=== PATIENT | female | born 1930 | race Caucasian/White ===

== ENCOUNTER 2020-08-15 15:02 | Emergency (ER) | payer MEDICARE, BC ==
[2020-08-15] MEDS ORDERED: Cephalexin 500 MG Cap PO ONE (15:03)
[2020-08-15] MEDS ORDERED: Morphine 2 MG/ML SYRINGE IVPUSH ONE (15:03)
[2020-08-15] MEDS ORDERED: Ondansetron 4 MG/2 ML SDV IVPUSH PRN (15:03)
[2020-08-15] MEDS ORDERED: Sodium Chloride 0.9% 10 ML Syringe IV PRN (15:07)
--- NOTE | 2020-08-15 15:12 | EDM.PDOC ---
ED HPI GENERAL MEDICAL PROBLEM - General Chief Complaint: Abdominal Pain Stated Complaint: ABD Pain Time Seen by Provider: 08/15/20 15:02 Source of Information: Reports: Patient History Limitations: Reports: No Limitations - History of Present Illness INITIAL COMMENTS - FREE TEXT/NARRATIVE: This patient is an 89 year old female that presents to the ER. Patient reports that she started yesterday evening with abdominal pain. She reports her abdominal pain hurts in the lower abd. She reports that last night she had about 4 episodes of diarrhea with minimal bright red stool. She reports vomiting, chest pain, shortness of breath, dizziness, urinary changes. Onset Date: 08/14/20 Duration: Hour(s): (24) Location: Reports: Abdomen Quality: Reports: Ache Severity: Moderate Improves with: Reports: None Worsens with: Reports: None Associated Symptoms: Reports: No Other Symptoms. Denies: Confusion, Chest Pain, Cough, cough w sputum, Diaphoresis, Fever/Chills, Headaches, Loss of Appetite, Malaise, Nausea/Vomiting, Rash, Seizure, Shortness of Breath, Syncope, Weakness lower abd Pain Score (Numeric/FACES): 8 - Related Data Allergies Allergy/AdvReac Type Severity Reaction Status Date / Time Sulfa (Sulfonamide Allergy Hives Verified 08/15/20 15:16 Antibiotics) Home Meds: Home Meds Acetaminophen [Tylenol Extra Strength] 500 mg PO DAILY PRN 10/10/16 [History] Docusate Sodium [Colace] 100 mg PO DAILY 10/10/16 [History] Furosemide 40 mg PO DAILY 10/10/16 [History] Gabapentin [Neurontin] 300 mg PO BEDTIME 10/10/16 [History] Ibuprofen [Advil] 100 mg PO DAILY PRN 10/10/16 [History] Propranolol [Inderal LA] 60 mg PO BID 10/10/16 [History] aMILoride/Hydrochlorothiazide [Amiloride-HCTZ 5-50 MG] 1 tab PO DAILY 10/10/16 [History] Calcium Carbonate/Vitamin D3 [Caltrate 600 Plus D3 Tablet] 1 tab PO DAILY 06/19/20 [History] Hydrocodone/Acetaminophen [Hydrocodone-Acetamin 5-325 mg] 2 tab PO DAILY 06/19/20 [History] Multivitamin 1 tab PO DAILY 06/19/20 [History] Potassium Chloride 20 meq PO BID 06/19/20 [History] cephALEXin [Cephalexin] 500 mg PO BID #10 capsule 08/15/20 [Rx] ED ROS GENERAL - Review of Systems Review Of Systems: See Below Constitutional: Reports: No Symptoms HEENT: Reports: No Symptoms Respiratory: Reports: No Symptoms Cardiovascular: Reports: No Symptoms Endocrine: Reports: No Symptoms GI/Abdominal: Reports: Abdominal Pain, Bloody Stool, Diarrhea. Denies: Black Stool : Reports: No Symptoms Musculoskeletal: Reports: No Symptoms Skin: Reports: No Symptoms Neurological: Reports: No Symptoms Psychiatric: Reports: No Symptoms Hematologic/Lymphatic: Reports: No Symptoms Immunologic: Reports: No Symptoms ED EXAM, GI/ABD - Physical Exam Exam: See Below Exam Limited By: No Limitations General Appearance: Alert, WD/WN, No Apparent Distress Ears: Normal External Exam, Normal Canal, Hearing Grossly Normal, Normal TMs Nose: Normal Inspection, Normal Mucosa, No Blood Throat/Mouth: Normal Inspection, Normal Lips, Normal Teeth, Normal Gums, Normal Oropharynx, Normal Voice, No Airway Compromise Head: Atraumatic, Normocephalic Neck: Normal Inspection, Supple, Non-Tender, Full Range of Motion Respiratory/Chest: No Respiratory Distress, Lungs Clear, Normal Breath Sounds, No Accessory Muscle Use Cardiovascular: Normal Peripheral Pulses, Regular Rate, Rhythm, No Edema, No Gallop, No JVD, No Murmur, No Rub GI/Abdominal Exam: Normal Bowel Sounds, Soft, No Organomegaly, No Distention, No Abnormal Bruit, No Mass, Pelvis Stable, Tender (mildly diffuse). No: Guarding, Rigid, Rebound Back Exam: Normal Inspection, Full Range of Motion. No: CVA Tenderness (L), CVA Tenderness (R) Extremities: Normal Inspection, Normal Range of Motion, Non-Tender, No Pedal Edema, Normal Capillary Refill Neurological: Alert, Oriented, Normal Cognition, Normal Gait, No Motor/Sensory Deficits Psychiatric: Normal Affect, Normal Mood Skin Exam: Warm, Dry, Intact, Normal Color, No Rash Lymphatic: No Adenopathy Course - Vital Signs Last Recorded V/S: Last Vital Signs Temp 98.1 F 08/15/20 15:04 Pulse 81 08/15/20 15:04 Resp 18 08/15/20 15:04 BP 151/81 H 08/15/20 15:04 Pulse Ox 95 08/15/20 15:04 - Orders/Labs/Meds Orders: Active Orders 24 hr Category Date Time Status Abdomen Pelvis w Cont [CT] Stat Exams 08/15/20 15:18 Taken CULTURE URINE [RM] Routine Lab 08/15/20 15:13 Received Ondansetron [Zofran] Med 08/15/20 15:03 Active 4 mg IVPUSH Q6H PRN Sodium Chloride 0.9% [Saline Flush] Med 08/15/20 15:07 Active 10 ml IV ASDIRECTED PRN cephALEXin [Take Home: Cephalexin 500 MG, 4 Cap Pack] Med 08/15/20 16:40 Once 1 packet PO ONETIME ONE Medication Orders Ondansetron HCl (Zofran) 4 mg IVPUSH Q6H PRN PRN Reason: Nausea Last Admin: 08/15/20 15:19 Dose: 4 mg Documented by: MACKRIC Sodium Chloride (Saline Flush) 10 ml IV ASDIRECTED PRN PRN Reason: Keep Vein Open Labs: Laboratory Tests 08/15/20 08/15/20 08/15/20 Range/Units 15:13 15:13 15:13 WBC 10.9 H (5.0-10.0) 10^3/uL RBC 4.40 (4.00-5.50) 10^6/uL Hgb 15.5 (12.0-16.0) g/dL Hct 44.2 (37.0-47.0) % MCV 100.5 H (82.0-94.0) fL MCH 35.2 H (27.0-32.0) pg MCHC 35.1 (33.0-38.0) g/dL RDW Coeff of Randal 13.2 (11.0-15.0) % Plt Count 206 (150-400) 10^3/uL Neut % (Auto) 69.8 (35-85) % Lymph % (Auto) 15.9 (10-55) % [place] % (Auto) 12.1 (0-16) % Eos % (Auto) 1.6 (0-5) % Baso % (Auto) 0.6 (0-3) % Neut # (Auto) 7.59 H (1.80-7.00) 10^3/uL Lymph # (Auto) 1.73 (1.00-4.80) 10^3/uL [place] # (Auto) 1.31 H (0.00-0.80) 10^3/uL Eos # (Auto) 0.17 (0.00-0.45) 10^3/uL Baso # (Auto) 0.06 10^3/uL Sodium 143 (136-145) mEq/L Potassium 3.4 L (3.5-5.0) mEq/L Chloride 104 (98-106) mEq/L Carbon Dioxide 32 (21-32) mmol/L BUN 20 H (7-18) mg/dL Creatinine 1.1 H (0.6-1.0) mg/dL Est Cr Clr Drug Dosing 24.90 mL/min Estimated GFR (MDRD) 47 L (>=60) mL/min Glucose 136 H (75-99) mg/dL Calcium 9.4 (8.4-10.1) mg/dL Total Bilirubin 1.1 H (0.0-1.0) mg/dL AST 30 (15-37) U/L ALT 31 (12-78) U/L Alkaline Phosphatase 78 (46-116) U/L Total Protein 7.4 (6.4-8.2) g/dL Albumin 3.2 L (3.4-5.0) g/dL Amylase 48 (25-115) U/L Lipase 148 (73-393) U/L Urine Color Yellow (YELLOW) Urine Appearance Clear (CLEAR) Urine pH 7.0 (4.5-8.0) Ur Specific [place] 1.020 (1.003-1.020) Urine Protein Trace H (NEGATIVE) mg/dL Urine Glucose (UA) Negative (NEGATIVE) mg/dL Urine Ketones Negative (NEGATIVE) mg/dL Urine Occult Blood Negative (NEGATIVE) Urine Nitrite Positive H (NEGATIVE) Urine Bilirubin Negative (NEGATIVE) Urine Urobilinogen 0.2 (0.2-1.0) EU/dL Ur Leukocyte Esterase Small H (NEGATIVE) Urine RBC 5-10 H (0-5) /HPF Urine WBC 50-75 H (0-5) /HPF Urine Bacteria Moderate H (NOT SEEN) /HPF Urinalysis Comment Meds: Medications Generic Name Dose Route Start Last Admin Trade Name Freq PRN Reason Stop Dose Admin Ondansetron HCl 4 mg 08/15/20 15:03 08/15/20 15:19 Zofran IVPUSH 4 mg Q6H PRN Administration Nausea Sodium Chloride 10 ml 08/15/20 15:07 Saline Flush IV ASDIRECTED PRN Keep Vein Open Discontinued Medications Generic Name Dose Route Start Last Admin Trade Name Papa PRN Reason Stop Dose Admin Ceftriaxone Sodium 1 gm 08/15/20 15:44 08/15/20 16:20 Rocephin IVPUSH 08/15/20 15:45 1 gm ONETIME ONE Administration Sodium Chloride 500 mls @ 500 mls/hr 08/15/20 15:15 08/15/20 16:20 Normal Saline IV 08/15/20 16:14 500 mls/hr ONETIME ONE Administration Iopamidol 100 ml 08/15/20 15:44 08/15/20 16:02 [id number] (76%) IVPUSH 08/15/20 15:45 100 ml ONETIME ONE Administration Morphine Sulfate 2 mg 08/15/20 15:03 08/15/20 15:18 Morphine IVPUSH 08/15/20 15:04 2 mg ONETIME ONE Administration - Radiology Interpretation Free Text/Narrative:: Abd/Pelvis with contrast: descending and transverse colon colitis. Ischemic pattern but not ischemic, it is colitis and she has no plaques at all. Gallstone s. CT Results Date: 08/15/20 CT Results Time: 16:21 - Re-Assessments/Exams Free Text/Narrative Re-Assessment/Exam: 08/15/20 16:33 This patient has a UTI, have given IV Rocephin. After discussing with the radiologist and patient symptoms, she has colitis. Not suspected ischemic bowel at this time. Pain is also not severe. Patient reports pain decreased after medication. Discussed with the patient. Will discharge her home. She is educated to return if her pain increases or continues. Also if she develops fever, vomiting, passing out or any concerns. She voices back understanding. Departure - Departure Time of Disposition: 16:36 Disposition: Home, Self-Care 01 Condition: Fair Clinical Impression: Colitis, Gallstones UTI (urinary tract infection) Qualifiers: Urinary tract infection type: acute cystitis Hematuria presence: with hematuria Qualified Code(s): N30.01 - Acute cystitis with hematuria - Discharge Information *PRESCRIPTION DRUG MONITORING PROGRAM REVIEWED*: Not Applicable *COPY OF PRESCRIPTION DRUG MONITORING REPORT IN PATIENT TEJ: Not Applicable Prescriptions: cephALEXin [Cephalexin] 500 mg PO BID #10 capsule Instructions: Cholelithiasis, Antibiotic Medicine, Adult, [id number], Viral Gastroenteritis, Adult, [id number], Cholelithiasis, [id number], Urinary Tract Infection, Adult Referrals: Leila Moon PA [Primary Care Provider] - Forms: ED Department Discharge Additional Instructions: Followup with primary care provider this week Return to the ER for worsening of condition or any emergent concerns such as increase in pain, vomiting, fever, or other concerns Increase fluids Rest Cephalexin 500mg 1 pill twice a day for 7 days #10 no refill #4 take home: Sent to your pharmacy Sepsis Event Note (ED) - Focused Exam Vital Signs: Vital Signs Temp Pulse Resp BP Pulse Ox 08/15/20 15:04 98.1 F 81 18 151/81 H 95 - My Orders Last 24 Hours: My Active Orders 08/15/20 15:03 Ondansetron [Zofran] 4 mg IVPUSH Q6H PRN 08/15/20 15:07 Sodium Chloride 0.9% [Saline Flush] 10 ml IV ASDIRECTED PRN 08/15/20 15:18 Abdomen Pelvis w Cont [CT] Stat 08/15/20 16:40 cephALEXin [Take Home: Cephalexin 500 MG, 4 Cap Pack] 1 packet PO ONETIME ONE - Assessment/Plan Last 24 Hours: My Active Orders 08/15/20 15:03 Ondansetron [Zofran] 4 mg IVPUSH Q6H PRN 08/15/20 15:07 Sodium Chloride 0.9% [Saline Flush] 10 ml IV ASDIRECTED PRN 08/15/20 15:18 Abdomen Pelvis w Cont [CT] Stat 08/15/20 16:40 cephALEXin [Take Home: Cephalexin 500 MG, 4 Cap Pack] 1 packet PO ONETIME ONE Plan: PLEASE SEE RN NOTE FOR PFSH
[2020-08-15] MEDS ORDERED: Sodium Chloride 0.9% 500 ML IV ONE (15:15)
[2020-08-15] MEDS ORDERED: cefTRIAXone 1 GM Vial IVPUSH ONE (15:44)
[2020-08-15] MEDS ORDERED: Iopamidol 755 Mg/ML 100 ML Bottle IVPUSH ONE (15:44)
[2020-08-15] MEDS ORDERED: Take Home: Cephalexin 500 MG Cap, 4 Cap Pack PO ONE (16:40)
== END 2020-08-15 17:36 | disposition home or self-care (01) ==
LOC: CC.ED 15:02
DX: K52.9 Noninfective gastroenteritis and colitis, unspecified (principal); K80.20 Calculus of gallbladder without cholecystitis without obstruction; N30.01 Acute cystitis with hematuria; Z88.2 Allergy status to sulfonamides; Z79.899 Other long term (current) drug therapy
CPT/HCPCS: 36415; 74177; 80053; 81001; 82150; 83690; 85025; 87086; 87088; 87186; 96374; 96375; 99284; A9270; J0696; J2270; J2405; J7040; Q9967; 99283

== ENCOUNTER 2021-01-04 08:20 | Inpatient (IN) | payer MEDICARE, BC ==
--- NOTE | 2021-01-04 09:07 | EDM.PDOC ---
ED HPI GENERAL MEDICAL PROBLEM - General Chief Complaint: General Stated Complaint: fall Time Seen by Provider: 01/04/21 08:59 Source of Information: Reports: Patient History Limitations: Reports: No Limitations - History of Present Illness INITIAL COMMENTS - FREE TEXT/NARRATIVE: This patient is an 89 year old female that presents to the ER. Patient reports that she was at home, she lives at home alone. She reports falling and "hit my head". Patient reports that she is unaware of how she fell. She does not recall if she tripped, or felt dizzy. She does deny loc, n, v, vision changes, neck pain, back pain, chest pain, shortness of breath, abd pain, urinary/bowel changes. She reports left shoulder pain from her fall. She reports after she fell, she was able to call her family to come help her up. Family was unable to get patient up from the floor, so they called the ambulance. Patient is alert. She is oriented to self and place and recalls falling. She does not now the year which RN reports is patient baseline. Onset: Today Onset Date: 01/04/21 Duration: Other (Onset [employer]) Location: Reports: Head ("hit head"), Upper Extremity, Left Severity: Mild Improves with: Reports: None Worsens with: Reports: None Associated Symptoms: Denies: Confusion, Chest Pain, Cough, cough w sputum, Diaphoresis, Fever/Chills, Headaches, Loss of Appetite, Malaise, Nausea/Vomiting, Rash, Seizure, Shortness of Breath, Syncope, Weakness - Related Data Allergies Allergy/AdvReac Type Severity Reaction Status Date / Time Sulfa (Sulfonamide Allergy Hives Verified 01/04/21 08:30 Antibiotics) Home Meds: Home Meds Acetaminophen [Tylenol Extra Strength] 500 mg PO DAILY PRN 10/10/16 [History] Docusate Sodium [Colace] 100 mg PO DAILY 10/10/16 [History] Furosemide 40 mg PO DAILY 10/10/16 [History] Gabapentin [Neurontin] 300 mg PO BEDTIME 10/10/16 [History] Ibuprofen [Advil] 100 mg PO DAILY PRN 10/10/16 [History] Propranolol [Inderal LA] 60 mg PO BID 10/10/16 [History] aMILoride/Hydrochlorothiazide [Amiloride-HCTZ 5-50 MG] 0.5 tab PO DAILY 10/10/16 [History] Calcium Carbonate/Vitamin D3 [Caltrate 600 Plus D3 Tablet] 1 tab PO DAILY 06/19/20 [History] Hydrocodone/Acetaminophen [Hydrocodone-Acetamin 5-325 mg] 2 tab PO DAILY 06/19/20 [History] Multivitamin 1 tab PO DAILY 06/19/20 [History] Potassium Chloride 20 meq PO TID 06/19/20 [History] Docusate Sodium [Stool Softener] 50 mg PO DAILY 01/04/21 [History] Social & Family History - Family History Family Medical History: No Pertinent Family History - Caffeine Use Caffeine Use: Reports: Coffee ED ROS GENERAL - Review of Systems Review Of Systems: See Below Constitutional: Reports: No Symptoms HEENT: Reports: No Symptoms Respiratory: Reports: No Symptoms Cardiovascular: Reports: No Symptoms Endocrine: Reports: No Symptoms GI/Abdominal: Reports: No Symptoms : Reports: No Symptoms Musculoskeletal: Reports: Joint Pain (left shoulder) Skin: Reports: No Symptoms Neurological: Reports: No Symptoms (no changes from baseline per SUE Blair, that was reported from family. ). Denies: Headache Psychiatric: Reports: No Symptoms Hematologic/Lymphatic: Reports: No Symptoms Immunologic: Reports: No Symptoms ED EXAM, GENERAL - Physical Exam Exam: See Below Exam Limited By: No Limitations General Appearance: Alert, WD/WN, No Apparent Distress Eye Exam: Bilateral Eye: EOMI, Normal Inspection, PERRL Ears: Normal External Exam, Normal Canal, Hearing Grossly Normal, Normal TMs Ear Exam: Bilateral Ear: Auricle Normal, Canal Normal, TM normal Nose: Normal Inspection, Normal Mucosa, No Blood Throat/Mouth: Normal Inspection, Normal Lips, Normal Teeth, Normal Gums, Normal Oropharynx, Normal Voice, No Airway Compromise Head: Atraumatic, Normocephalic Neck: Normal Inspection, Supple, Non-Tender, Full Range of Motion Respiratory/Chest: No Respiratory Distress, Lungs Clear, Normal Breath Sounds, No Accessory Muscle Use, Chest Non-Tender Cardiovascular: Normal Peripheral Pulses, Regular Rate, Rhythm, No Edema, No Gallop, No JVD, No Murmur, No Rub Peripheral Pulses: 2+: Radial (L), Radial (R), Posterior Tibial (L), Posterior Tibial (R), Dorsalis Pedis (L), Dorsalis Pedis (R) GI/Abdominal: Normal Bowel Sounds, Soft, Non-Tender, No Organomegaly, No Distention, No Abnormal Bruit, No Mass, Pelvis Stable (Female) Exam: Deferred Rectal (Female) Exam: Deferred Back Exam: Normal Inspection, Full Range of Motion. No: Decreased Range of Motion, Muscle Spasm, Paraspinal Tenderness, Vertebral Tenderness Extremities: Normal Inspection, Normal Range of Motion, No Pedal Edema, Normal Capillary Refill, Other (Pain, tenderness Left anterior should proximal humerus. ROM intact. Pulses +2, cap refill <2 sec, sensory/motor function intact. neurovascular intact. ) Neurological: Alert, Oriented (Oriented per her baseline to self and place. ), CN II-XII Intact, Normal Cognition, No Motor/Sensory Deficits Psychiatric: Normal Affect, Normal Mood Skin Exam: Warm, Dry, Intact, Normal Color, No Rash #1 Interpretation EKG Date: 01/04/21 Time: 08:42 Rate (Beats/Min): 57 QRS: Other (1st degree AV block) ST-T: Normal Comparison: NA - No Prior EKG Course - Vital Signs Last Recorded V/S: Last Vital Signs Temp 97.2 F 01/04/21 09:01 Pulse 60 01/04/21 09:34 Resp 18 01/04/21 09:01 BP 123/72 01/04/21 09:34 Pulse Ox 94 L 01/04/21 09:01 - Orders/Labs/Meds Orders: Active Orders 24 hr Category Date Time Status Chest 1V Frontal [CR] Stat Exams 01/04/21 08:59 Taken Head wo Cont [CT] Stat Exams 01/04/21 08:59 Taken Humerus Lt [CR] Stat Exams 01/04/21 08:37 Taken MAGNESIUM [CHEM] Stat Lab 01/04/21 10:01 Ordered PHOSPHORUS [CHEM] Stat Lab 01/04/21 10:01 Ordered Labs: Laboratory Tests 01/04/21 01/04/21 01/04/21 Range/Units 08:59 09:15 09:15 WBC 11.4 H (5.0-10.0) 10^3/uL RBC 4.42 (4.00-5.50) 10^6/uL Hgb 15.5 (12.0-16.0) g/dL Hct 44.3 (37.0-47.0) % MCV 100.2 H (82.0-94.0) fL MCH 35.1 H (27.0-32.0) pg MCHC 35.0 (33.0-38.0) g/dL RDW Coeff of Randal 13.3 (11.0-15.0) % Plt Count 157 (150-400) 10^3/uL Neut % (Auto) 69.3 (35-85) % Lymph % (Auto) 14.7 (10-55) % [place] % (Auto) 11.9 (0-16) % Eos % (Auto) 3.7 (0-5) % Baso % (Auto) 0.4 (0-3) % Neut # (Auto) 7.92 H (1.80-7.00) 10^3/uL Lymph # (Auto) 1.68 (1.00-4.80) 10^3/uL [place] # (Auto) 1.36 H (0.00-0.80) 10^3/uL Eos # (Auto) 0.42 (0.00-0.45) 10^3/uL Baso # (Auto) 0.05 10^3/uL PT 11.8 (9.7-12.3) SEC INR 1.09 (0.92-1.18) Sodium 142 (136-145) mEq/L Potassium 2.8 L* (3.5-5.0) mEq/L Chloride 100 (98-106) mEq/L Carbon Dioxide 34 H (21-32) mmol/L BUN 27 H (7-18) mg/dL Creatinine 1.2 H (0.6-1.0) mg/dL Est Cr Clr Drug Dosing 23.98 mL/min Estimated GFR (MDRD) 42 L (>=60) mL/min Glucose 132 H (75-99) mg/dL Calcium 9.1 (8.4-10.1) mg/dL Total Bilirubin 1.0 (0.0-1.0) mg/dL AST 35 (15-37) U/L ALT 35 (12-78) U/L Alkaline Phosphatase 85 (46-116) U/L Lactate Dehydrogenase 262 H (100-190) U/L Creatine Kinase 100 (21-215) U/L Troponin I < 0.017 (0.00-0.06) ng/mL Total Protein 7.5 (6.4-8.2) g/dL Albumin 3.2 L (3.4-5.0) g/dL Urine Color (YELLOW) Urine Appearance (CLEAR) Urine pH (4.5-8.0) Ur Specific [place] (1.003-1.020) Urine Protein (NEGATIVE) mg/dL Urine Glucose (UA) (NEGATIVE) mg/dL Urine Ketones (NEGATIVE) mg/dL Urine Occult Blood (NEGATIVE) Urine Nitrite (NEGATIVE) Urine Bilirubin (NEGATIVE) Urine Urobilinogen (0.2-1.0) EU/dL Ur Leukocyte Esterase (NEGATIVE) Urine RBC (0-5) /HPF Urine WBC (0-5) /HPF Ur Epithelial Cells (NOT SEEN) /HPF Urine Bacteria (NOT SEEN) /HPF 01/04/21 Range/Units 09:34 WBC (5.0-10.0) 10^3/uL RBC (4.00-5.50) 10^6/uL Hgb (12.0-16.0) g/dL Hct (37.0-47.0) % MCV (82.0-94.0) fL MCH (27.0-32.0) pg MCHC (33.0-38.0) g/dL RDW Coeff of Randal (11.0-15.0) % Plt Count (150-400) 10^3/uL Neut % (Auto) (35-85) % Lymph % (Auto) (10-55) % [place] % (Auto) (0-16) % Eos % (Auto) (0-5) % Baso % (Auto) (0-3) % Neut # (Auto) (1.80-7.00) 10^3/uL Lymph # (Auto) (1.00-4.80) 10^3/uL [place] # (Auto) (0.00-0.80) 10^3/uL Eos # (Auto) (0.00-0.45) 10^3/uL Baso # (Auto) 10^3/uL PT (9.7-12.3) SEC INR (0.92-1.18) Sodium (136-145) mEq/L Potassium (3.5-5.0) mEq/L Chloride (98-106) mEq/L Carbon Dioxide (21-32) mmol/L BUN (7-18) mg/dL Creatinine (0.6-1.0) mg/dL Est Cr Clr Drug Dosing mL/min Estimated GFR (MDRD) (>=60) mL/min Glucose (75-99) mg/dL Calcium (8.4-10.1) mg/dL Total Bilirubin (0.0-1.0) mg/dL AST (15-37) U/L ALT (12-78) U/L Alkaline Phosphatase (46-116) U/L Lactate Dehydrogenase (100-190) U/L Creatine Kinase (21-215) U/L Troponin I (0.00-0.06) ng/mL Total Protein (6.4-8.2) g/dL Albumin (3.4-5.0) g/dL Urine Color Yellow (YELLOW) Urine Appearance Clear (CLEAR) Urine pH 7.5 (4.5-8.0) Ur Specific [place] 1.020 (1.003-1.020) Urine Protein Negative (NEGATIVE) mg/dL Urine Glucose (UA) Negative (NEGATIVE) mg/dL Urine Ketones Negative (NEGATIVE) mg/dL Urine Occult Blood Negative (NEGATIVE) Urine Nitrite Negative (NEGATIVE) Urine Bilirubin Negative (NEGATIVE) Urine Urobilinogen 0.2 (0.2-1.0) EU/dL Ur Leukocyte Esterase Small H (NEGATIVE) Urine RBC 0-5 (0-5) /HPF Urine WBC 5-10 H (0-5) /HPF Ur Epithelial Cells Moderate H (NOT SEEN) /HPF Urine Bacteria Few H (NOT SEEN) /HPF - Radiology Interpretation Free Text/Narrative:: Head CT: No acute bleed, shift. Chronic changes, chronic infarct. 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 Left Humerus Xray: Possible proximal humerus fx. CXR: No acute findings CT Results Date: 01/04/21 CT Results Time: 09:53 Departure - Departure Time of Disposition: 10:10 Disposition: DC/Tfer to Acute Hospital 02 Condition: Fair Clinical Impression: Hypokalemia, Paget's disease Fall Qualifiers: Encounter type: initial encounter Qualified Code(s): W19.XXXA - Unspecified fall, initial encounter UTI (urinary tract infection) Qualifiers: Urinary tract infection type: acute cystitis Hematuria presence: with hematuria Qualified Code(s): N30.01 - Acute cystitis with hematuria - Discharge Information *PRESCRIPTION DRUG MONITORING PROGRAM REVIEWED*: Not Applicable *COPY OF PRESCRIPTION DRUG MONITORING REPORT IN PATIENT TEJ: Not Applicable Forms: ED Department Discharge Sepsis Event Note (ED) - Focused Exam Vital Signs: Vital Signs Temp Pulse Resp BP Pulse Ox 01/04/21 09:34 60 123/72 01/04/21 09:01 97.2 F 60 18 147/71 H 94 L - My Orders Last 24 Hours: My Active Orders 01/04/21 08:37 Humerus Lt [CR] Stat 01/04/21 08:59 Chest 1V Frontal [CR] Stat Head wo Cont [CT] Stat 01/04/21 10:01 MAGNESIUM [CHEM] Stat PHOSPHORUS [CHEM] Stat - Assessment/Plan Last 24 Hours: My Active Orders 01/04/21 08:37 Humerus Lt [CR] Stat 01/04/21 08:59 Chest 1V Frontal [CR] Stat Head wo Cont [CT] Stat 01/04/21 10:01 MAGNESIUM [CHEM] Stat PHOSPHORUS [CHEM] Stat Plan: PLEASE SEE RN NOTE FOR PFSH
[2021-01-04 09:48] LABS: CHLORIDE,CL 100 mEq/L (98-106); SODIUM,NA 142 mEq/L (136-145)
[2021-01-04] MEDS ORDERED: Ondansetron 4 MG/2 ML SDV IV PRN (10:31)
[2021-01-04] MEDS ORDERED: Potassium Chloride 20 MEQ in Dextrose 5% in Water 1,000 ML IV SCH ×2 (10:31)
[2021-01-04] MEDS ORDERED: Acetaminophen 325 MG Tab PO PRN (10:31)
[2021-01-04] MEDS ORDERED: Morphine 2 MG/ML SYRINGE IVPUSH PRN (10:31)
[2021-01-04] MEDS ORDERED: Acetaminophen/HYDROcodone 325-5 MG Tab PO PRN (10:31)
[2021-01-04] MEDS ORDERED: Acetaminophen 500 MG Tab PO PRN (10:55)
[2021-01-04] MEDS ORDERED: IBUPROFEN 100 MG PO PRN (10:55)
[2021-01-04] MEDS ORDERED: Potassium Chloride 10 MEQ Tab.ER PO SCH (11:00)
[2021-01-04] MEDS ORDERED: Ibuprofen 200 MG Tab PO PRN (11:22)
[2021-01-04] MEDS: Enoxaparin 30 MG/0.3 ML Syringe SUBCUT SCH (11:32)
[2021-01-04] MEDS: cefTRIAXone 1 GM Vial IVPUSH SCH (11:32)
[2021-01-04] MEDS ORDERED: NS + KCl 20mEq/L 1,000 ML IV ONE (11:45)
[2021-01-04] MEDS ORDERED: HYDROCODONE PO SCH ×2 (12:00→17:30)
[2021-01-04] MEDS ORDERED: POTASSIUM CHLORIDE 20 MEQ PO SCH (12:00)
[2021-01-04] MEDS ORDERED: ACETAMINOPHEN PO SCH ×2 (12:00→17:30)
[2021-01-04] MEDS: Potassium Chloride 10 MEQ Tab.ER PO SCH (17:23)
[2021-01-04] MEDS: Gabapentin 300 MG Cap PO SCH (19:38)
[2021-01-04] MEDS: Propranolol 60 MG Cap.ER PO SCH (19:38)
[2021-01-04] MEDS ORDERED: PROPRANOLOL 60 MG PO SCH (20:00)
[2021-01-05] MEDS: Acetaminophen/HYDROcodone 325-5 MG Tab PO PRN ×2 (05:30→19:45)
[2021-01-05] MEDS: Potassium Chloride 10 MEQ Tab.ER PO SCH ×3 (07:54→17:22)
[2021-01-05] MEDS: Calcium Carbonate/Vitamin D3 1250 MG-200 Unit Tab PO SCH (07:54)
[2021-01-05] MEDS: Furosemide 40 MG Tab PO SCH (07:54)
[2021-01-05] MEDS: Propranolol 60 MG Cap.ER PO SCH ×2 (07:54→19:45)
[2021-01-05] MEDS ORDERED: Furosemide 40 MG Tab **PTOM PO SCH (08:00)
[2021-01-05] MEDS ORDERED: Take Home: Acetaminophen/HYDROcodone 325-5 MG, 2 Tab Pack PO SCH (08:00)
[2021-01-05] MEDS ORDERED: DOCUSATE SODIUM 50 MG PO SCH (08:00)
[2021-01-05] MEDS ORDERED: Potassium Chloride 10 MEQ Tab.ER PO SCH (09:00)
[2021-01-05] MEDS: HYDROCHLOROTHIAZIDE PO SCH (09:43)
[2021-01-05] MEDS: AMILORIDE PO SCH (09:43)
--- NOTE | 2021-01-05 10:23 | PCM.PN ---
- General Info Date of Service: 01/05/21 Admission Dx/Problem (Free Text): UTI Hypokalemia Fall Subjective Update: Marva is an 89 yo female who was admitted from the ED after falling at home. She was seen by my colleague Danny Ward and admitted for UTI and hypokalemia. She reports she is doing well this morning. She does not offer any complaints at the time of rounds. Denies any ongoing pain. She is lying in bed comfortably at time of rounds. Reports she hasn't been up walking much. She denies any dizziness, headache, N/V/D, urinary symptoms. Is weak with moving self in bed. Functional Status: Reports: Pain Controlled, Tolerating Diet, Ambulating, Urinat ing. Denies: New Symptoms - Review of Systems General: Reports: Weakness. Denies: Fever, Chills HEENT: Reports: No Symptoms Pulmonary: Reports: No Symptoms. Denies: Shortness of Breath, Cough Cardiovascular: Reports: No Symptoms. Denies: Chest Pain, Dyspnea on Exertion, Edema, Lightheadedness Gastrointestinal: Reports: No Symptoms. Denies: Abdominal Pain, Constipation, Decreased Appetite, Diarrhea, Nausea, Vomiting Genitourinary: Reports: No Symptoms. Denies: Dysuria Musculoskeletal: Reports: No Symptoms Skin: Reports: No Symptoms Neurological: Reports: Weakness. Denies: Confusion, Dizziness, Headache, Numbness, Tingling Psychiatric: Reports: No Symptoms - Patient Data Vitals - Most Recent: Last Vital Signs Temp 98 F 01/05/21 07:53 Pulse 71 01/05/21 09:43 Resp 18 01/05/21 07:53 BP 124/55 L 01/05/21 09:43 Pulse Ox 96 01/05/21 07:53 Weight - Most Recent: 186 lb 6.4 oz Lab Results Last 24 Hours: Laboratory Results - last 24 hr 01/05/21 01/05/21 Range/Units 07:56 07:56 WBC 9.4 (5.0-10.0) 10^3/uL RBC 3.65 L (4.00-5.50) 10^6/uL Hgb 13.1 (12.0-16.0) g/dL Hct 36.6 L (37.0-47.0) % MCV 100.3 H (82.0-94.0) fL MCH 35.9 H (27.0-32.0) pg MCHC 35.8 (33.0-38.0) g/dL RDW Coeff of Randal 13.6 (11.0-15.0) % Plt Count 156 (150-400) 10^3/uL Neut % (Auto) 50.5 (35-85) % Lymph % (Auto) 26.2 (10-55) % [place] % (Auto) 17.7 H (0-16) % Eos % (Auto) 5.2 H (0-5) % Baso % (Auto) 0.4 (0-3) % Neut # (Auto) 4.76 (1.80-7.00) 10^3/uL Lymph # (Auto) 2.47 (1.00-4.80) 10^3/uL [place] # (Auto) 1.67 H (0.00-0.80) 10^3/uL Eos # (Auto) 0.49 H (0.00-0.45) 10^3/uL Baso # (Auto) 0.04 10^3/uL Sodium 144 (136-145) mEq/L Potassium 2.9 L* (3.5-5.0) mEq/L Chloride 106 (98-106) mEq/L Carbon Dioxide 29 (21-32) mmol/L BUN 27 H (7-18) mg/dL Creatinine 1.3 H (0.6-1.0) mg/dL Est Cr Clr Drug Dosing 22.14 mL/min Estimated GFR (MDRD) 39 L (>=60) mL/min Glucose 110 H (75-99) mg/dL Calcium 8.0 L (8.4-10.1) mg/dL Med Orders - Current: Current Medications Acetaminophen (Tylenol Extra Strength) 500 mg PO DAILY PRN PRN Reason: Pain Hydrocodone Bitart/Acetaminophen ([place] 325-5 Mg) 1 - 2 tab PO Q6H PRN PRN Reason: Pain Last Admin: 01/05/21 05:30 Dose: 1 tab Documented by: Calcium Carbonate (Calcium Carbonate/Vitamin D 1250 Mg-200 Unit) 1 tab PO DAILY [facility] Last Admin: 01/05/21 07:54 Dose: 1 tab Documented by: Ceftriaxone Sodium (Rocephin) 1 gm IVPUSH Q24H [facility] Last Admin: 01/04/21 11:32 Dose: 1 gm Documented by: Docusate Sodium (Colace) 100 mg PO DAILY [facility] Enoxaparin Sodium (Lovenox) 30 mg SUBCUT Q24H [facility] Last Admin: 01/04/21 11:32 Dose: 30 mg Documented by: Furosemide (Lasix) 80 mg PO DAILY [facility] Last Admin: 01/05/21 07:54 Dose: 80 mg Documented by: Gabapentin (Neurontin) 300 mg PO BEDTIME [facility] Last Admin: 01/04/21 19:38 Dose: 300 mg Documented by: Ibuprofen (Motrin) 200 mg PO DAILY PRN PRN Reason: Pain Last Admin: 01/04/21 23:52 Dose: 200 mg Documented by: Morphine Sulfate (Morphine) 2 mg IVPUSH Q2H PRN PRN Reason: Pain (severe 7-10) Multivitamins/Minerals/Vitamin C (Tab-A-Wallace) 1 tab PO DAILY [facility] Amiloride/Hydrochlorothiazide 5/50mg Tab Ptom 0 each PO DAILY [facility] Last Admin: 01/05/21 09:43 Dose: 1 each Documented by: Ondansetron HCl (Zofran) 4 mg IV Q6H PRN PRN Reason: Nausea/Vomiting Potassium Chloride (Klor-Con 10) 20 meq PO BIDMEALS [facility] Last Admin: 01/05/21 07:54 Dose: 20 meq Documented by: Propranolol HCl (Inderal La) 60 mg PO BID [facility] Last Admin: 01/05/21 07:54 Dose: 60 mg Documented by: Discontinued Medications Acetaminophen (Tylenol) 650 mg PO Q4H PRN PRN Reason: Pain (Mild 1-3)/fever Hydrocodone Bitart/Acetaminophen ([place] 325-5 Mg) 1 tab PO Q4H PRN PRN Reason: Pain (moderate 4-6) Hydrocodone Bitart/Acetaminophen ([place] 325-5 Mg) 1 tab PO QAM [facility] Last Admin: 01/04/21 12:07 Dose: Not Given Documented by: Hydrocodone Bitart/Acetaminophen ([place] 325-5 Mg) 2 tab PO WITHDINNER [facility] Furosemide (Lasix) 80 mg PO DAILY [facility] Potassium Chloride 20 meq/ (Dextrose/Water) 1,010 mls @ 100 mls/hr IV ASDIRECTED [facility] Potassium Chloride/Sodium Chloride (Normal Saline With 20 Meq Kcl) 1,000 mls @ 100 mls/hr IV ONETIME ONE Stop: 01/04/21 21:44 Last Admin: 01/04/21 11:40 Dose: 100 mls/hr Documented by: Non-Formulary Medication (Docusate Sodium [Stool Softener]) 50 mg PO DAILY [facility] Non-Formulary Medication (Ibuprofen [Advil]) 100 mg PO DAILY PRN PRN Reason: Pain Potassium Chloride (20 Meq Tab Ptom) 0 each PO BIDMEALS [facility] Last Admin: 01/04/21 15:11 Dose: Not Given Documented by: Potassium Chloride (Klor-Con 10) 40 meq PO DAILY [facility] Last Admin: 01/04/21 11:40 Dose: Not Given Documented by: Propranolol HCl (Inderal La) 60 mg PO BID [facility] - Exam Quality Assessment: DVT Prophylaxis General: Alert, Oriented, No Acute Distress Neck: Supple Lungs: Clear to Auscultation, Normal Respiratory Effort Cardiovascular: Regular Rhythm, Bradycardia GI/Abdominal Exam: Normal Bowel Sounds, Soft, Non-Tender, No Organomegaly, No Distention, No Abnormal Bruit, No Mass, Pelvis Stable Back Exam: Normal Inspection, Full Range of Motion. No: CVA Tenderness (L), CVA Tenderness (R) Extremities: Normal Inspection, Normal Range of Motion, Non-Tender, No Pedal Edema, Normal Capillary Refill Skin: Dry Neurological: No New Focal Deficit Psy/Mental Status: Alert, Normal Affect, Normal Mood - Patient Data Lab Results Last 24 hrs: Laboratory Results - last 24 hr 01/05/21 01/05/21 Range/Units 07:56 07:56 WBC 9.4 (5.0-10.0) 10^3/uL RBC 3.65 L (4.00-5.50) 10^6/uL Hgb 13.1 (12.0-16.0) g/dL Hct 36.6 L (37.0-47.0) % MCV 100.3 H (82.0-94.0) fL MCH 35.9 H (27.0-32.0) pg MCHC 35.8 (33.0-38.0) g/dL RDW Coeff of Randal 13.6 (11.0-15.0) % Plt Count 156 (150-400) 10^3/uL Neut % (Auto) 50.5 (35-85) % Lymph % (Auto) 26.2 (10-55) % [place] % (Auto) 17.7 H (0-16) % Eos % (Auto) 5.2 H (0-5) % Baso % (Auto) 0.4 (0-3) % Neut # (Auto) 4.76 (1.80-7.00) 10^3/uL Lymph # (Auto) 2.47 (1.00-4.80) 10^3/uL [place] # (Auto) 1.67 H (0.00-0.80) 10^3/uL Eos # (Auto) 0.49 H (0.00-0.45) 10^3/uL Baso # (Auto) 0.04 10^3/uL Sodium 144 (136-145) mEq/L Potassium 2.9 L* (3.5-5.0) mEq/L Chloride 106 (98-106) mEq/L Carbon Dioxide 29 (21-32) mmol/L BUN 27 H (7-18) mg/dL Creatinine 1.3 H (0.6-1.0) mg/dL Est Cr Clr Drug Dosing 22.14 mL/min Estimated GFR (MDRD) 39 L (>=60) mL/min Glucose 110 H (75-99) mg/dL Calcium 8.0 L (8.4-10.1) mg/dL Result Diagrams: 01/05/21 07:56 01/05/21 07:56 Sepsis Event Note - Evaluation Sepsis Screening Result: No Definite Risk - Focused Exam Vital Signs: Vital Signs Temp Pulse Resp BP Pulse Ox 01/05/21 09:43 71 124/55 L 01/05/21 07:53 98 F 65 18 113/45 L 96 01/05/21 04:00 99.6 F 70 18 118/43 L 93 L 01/05/21 00:00 99 F 76 18 121/51 L 96 - Problem List & Annotations (1) Fall SNOMED Code(s): 2360592, 736038619 Code(s): W19.XXXA - UNSPECIFIED FALL, INITIAL ENCOUNTER Status: Acute Current Visit: No Qualifiers: Encounter type: initial encounter Qualified Code(s): W19.XXXA - Unspecified fall, initial encounter (2) Hypokalemia SNOMED Code(s): 57691589 Code(s): E87.6 - HYPOKALEMIA Status: Acute Current Visit: No (3) Paget's disease SNOMED Code(s): 6647671 Code(s): ZMQ9832 - Status: Acute Current Visit: No (4) UTI (urinary tract infection) SNOMED Code(s): 33729126 Code(s): N39.0 - URINARY TRACT INFECTION, SITE NOT SPECIFIED Status: Acute Current Visit: No Qualifiers: Urinary tract infection type: acute cystitis Hematuria presence: with hematuria Qualified Code(s): N30.01 - Acute cystitis with hematuria - Problem List Review Problem List Initiated/Reviewed/Updated: Yes - My Orders Last 24 Hours: My Active Orders 01/04/21 13:24 Acetaminophen/HYDROcodone [[place] 325-5 MG] 1 - 2 tab PO Q6H PRN 01/05/21 12:00 Potassium Chloride [Klor-Con 10] 40 meq PO TIDMEALS - Assessment Assessment:: UTI Hypokalemia Fall Paget's Disease - Plan Plan:: Patient reports feeling well this morning. She does not offer any complaints. Head CT was negative in ED except did reveal findings consistent with Paget's di sease. Xrays were negative for fracture. She denies any urinary symptoms. Appetite has been good. Has not been ambulating much. Consult PT for strengthening and home safety evaluation. Patient admitted with fall at home. WBC improved from 11.4 on admit to 9.4. Will continue with IV Rocephin. Urine culture pending. Potassium was 2.8 on admit. Did receive 20 meq KCL with IVF. Has been on 20 meq BID. Will increase to 40 meq TID with meals as well as give 40 meq KCL IV. Creatinine 1.3. Recheck labs in am. Anticipate discharge home tomorrow.
[2021-01-05] MEDS ORDERED: Sodium Chloride 0.9% 500 ML IV ONE (10:30)
[2021-01-05] MEDS ORDERED: Potassium Chloride Riders 40 MEQ in Premix Bag 1 BAG IV ONE (10:30)
[2021-01-05] MEDS ORDERED: Sodium Chloride 0.9% 250 ML IV ONE (10:45)
[2021-01-05] MEDS: Docusate Sodium 100 MG Cap PO SCH (11:09)
[2021-01-05] MEDS: Multivitamin Tab PO SCH (11:09)
[2021-01-05] MEDS: cefTRIAXone 1 GM Vial IVPUSH SCH (11:10)
[2021-01-05] MEDS: Enoxaparin 30 MG/0.3 ML Syringe SUBCUT SCH (11:19)
[2021-01-05] MEDS: Gabapentin 300 MG Cap PO SCH (19:45)
[2021-01-06] MEDS: Docusate Sodium 100 MG Cap PO SCH (07:42)
[2021-01-06] MEDS: Furosemide 40 MG Tab PO SCH (07:43)
[2021-01-06] MEDS: Potassium Chloride 10 MEQ Tab.ER PO SCH (07:43)
[2021-01-06] MEDS: Multivitamin Tab PO SCH (07:43)
[2021-01-06] MEDS: Calcium Carbonate/Vitamin D3 1250 MG-200 Unit Tab PO SCH (07:43)
[2021-01-06] MEDS: Acetaminophen/HYDROcodone 325-5 MG Tab PO PRN (08:13)
[2021-01-06] MEDS: HYDROCHLOROTHIAZIDE PO SCH (08:19)
[2021-01-06] MEDS: Propranolol 60 MG Cap.ER PO SCH (08:19)
[2021-01-06] MEDS: AMILORIDE PO SCH (08:19)
--- NOTE | 2021-01-06 08:44 | PCM.DCSUM1 ---
Discharge Summary - Hospital Course Free Text/Narrative:: Marva is an 89 year old female who presented to ER after a fall at home. Does use a walker, unsure if she tripped or got dizzy as was unsure why she fell. Denied loss of consciousness. Was unable to get up from floor so called family for assistance. Complained of left shoulder discomfort. Family was unable to get patient up from floor so EMS was called. CT scan of head was done, no acute concerns. Humerus xray done and was negative. Labs show low potassium, probable UTI. Admitted inpatient, started on IV antibiotics, potassium replacement. Diagnosis: Stroke: No Modified [place] Scale: No Symptoms at All Modified [place] Scale Score: 0 - Discharge Data Discharge Date: 01/06/21 Discharge Disposition: Home, W Home Health Agency 06 Condition: Fair - Referral to Home Health Date of Face to Face Encounter: 01/06/21 Reason for Homebound Status: patient does not drive due to chronic back pain and instability Primary Care Physician: JOSE MIGUEL Gomez Skilled Need: Nursing to monitor blood pressure, pain level and edema. Physical therapy for strengthening. Occupational therapy for ADLs and home safety. - Discharge Diagnosis/Problem(s) (1) Hypokalemia SNOMED Code(s): 42403969 ICD Code: E87.6 - HYPOKALEMIA Status: Acute Priority: High (2) UTI (urinary tract infection) SNOMED Code(s): 85016802 ICD Code: N39.0 - URINARY TRACT INFECTION, SITE NOT SPECIFIED Status: Acute Priority: High Qualifiers: Urinary tract infection type: acute cystitis Hematuria presence: with hematuria Qualified Code(s): N30.01 - Acute cystitis with hematuria - Patient Summary/Data Complications: none Consults: Consultations 01/05/21 10:23 Consult to Physical Therapy [PT Evaluation and Treatment] [CONS] Routine Hospital Course: Patient is doing well, wanting to go home. She is able to ambulate per self with her walker. NO shoulder pain, does admit to back pain but is chronic for the patient. Is tolerating well with her pain meds. Good appetite. No chest pain, shortness of breath. No urinary complaints. Has been given potassium IV bumps and oral potassium was increased to TID. Will discharge home on oral antibiotics. Continue TID potassium. Follow up in 2 weeks with myself in [place]. Will repeat labs at that time. - Patient Instructions Diet: Usual Diet as Tolerated Activity: As Tolerated - Discharge Plan *PRESCRIPTION DRUG MONITORING PROGRAM REVIEWED*: Not Applicable *COPY OF PRESCRIPTION DRUG MONITORING REPORT IN PATIENT TEJ: Not Applicable Prescriptions/Med Rec: Cefuroxime [Ceftin] 250 mg PO BID #14 tablet Potassium Chloride [Klor-Con 10] 40 meq PO TIDMEALS #90 tab.er Home Medications: Home Meds Acetaminophen [Tylenol Extra Strength] 500 mg PO DAILY PRN 10/10/16 [History] Docusate Sodium [Colace] 100 mg PO DAILY 10/10/16 [History] Furosemide 40 mg PO BID 10/10/16 [History] Gabapentin [Neurontin] 300 mg PO BEDTIME 10/10/16 [History] Ibuprofen [Advil] 100 mg PO DAILY PRN 10/10/16 [History] Propranolol [Inderal LA] 60 mg PO BID 10/10/16 [History] aMILoride/Hydrochlorothiazide [Amiloride-HCTZ 5-50 MG] 0.5 tab PO DAILY 10/10/16 [History] Calcium Carbonate/Vitamin D3 [Caltrate 600 Plus D3 Tablet] 1 tab PO DAILY 06/19/20 [History] Hydrocodone/Acetaminophen [Hydrocodone-Acetamin 5-325 mg] 2 tab PO DAILY 06/19/20 [History] Multivitamin 1 tab PO DAILY 06/19/20 [History] Docusate Sodium [Stool Softener] 50 mg PO DAILY 01/04/21 [History] Cefuroxime [Ceftin] 250 mg PO BID #14 tablet 01/06/21 [Rx] Potassium Chloride [Klor-Con 10] 40 meq PO TIDMEALS #90 tab.er 01/06/21 [Rx] Patient Handouts: Urinary Tract Infection, Adult Forms: ED Department Discharge Referrals: Leila Moon PA [Primary Care Provider] - (Hospital follow up in [place] with jerad on January 19) - Discharge Summary/Plan Comment DC Time >30 min.: No - General Info Date of Service: 01/06/21 Admission Dx/Problem (Free Text: UTI Hypokalemia Fall Functional Status: Reports: Pain Controlled, Tolerating Diet, Ambulating - Review of Systems General: Reports: Weakness. Denies: Fatigue, Malaise HEENT: Reports: No Symptoms Pulmonary: Denies: Shortness of Breath, Cough Cardiovascular: Reports: Edema. Denies: Chest Pain, Lightheadedness Gastrointestinal: Denies: Abdominal Pain, Nausea, Vomiting Genitourinary: Denies: Dysuria Musculoskeletal: Reports: Back Pain Skin: Reports: No Symptoms Neurological: Reports: Weakness - Patient Data Vitals - Most Recent: Last Vital Signs Temp 98.6 F 01/06/21 08:00 Pulse 72 01/06/21 08:00 Resp 18 01/06/21 08:00 BP 94/71 01/06/21 08:00 Pulse Ox 94 L 01/06/21 08:00 Weight - Most Recent: 186 lb 6.4 oz Lab Results - Last 24 hrs: Laboratory Results - last 24 hr 01/06/21 01/06/21 Range/Units 05:00 05:00 WBC 10.2 H (5.0-10.0) 10^3/uL RBC 3.81 L (4.00-5.50) 10^6/uL Hgb 13.5 (12.0-16.0) g/dL Hct 38.2 (37.0-47.0) % MCV 100.3 H (82.0-94.0) fL MCH 35.4 H (27.0-32.0) pg MCHC 35.3 (33.0-38.0) g/dL RDW Coeff of Randal 13.7 (11.0-15.0) % Plt Count 152 (150-400) 10^3/uL Neut % (Auto) 51.3 (35-85) % Lymph % (Auto) 27.2 (10-55) % [place] % (Auto) 15.6 (0-16) % Eos % (Auto) 5.3 H (0-5) % Baso % (Auto) 0.6 (0-3) % Neut # (Auto) 5.22 (1.80-7.00) 10^3/uL Lymph # (Auto) 2.77 (1.00-4.80) 10^3/uL [place] # (Auto) 1.59 H (0.00-0.80) 10^3/uL Eos # (Auto) 0.54 H (0.00-0.45) 10^3/uL Baso # (Auto) 0.06 10^3/uL Sodium 143 (136-145) mEq/L Potassium 3.5 D (3.5-5.0) mEq/L Chloride 107 H (98-106) mEq/L Carbon Dioxide 27 (21-32) mmol/L BUN 27 H (7-18) mg/dL Creatinine 1.1 H (0.6-1.0) mg/dL Est Cr Clr Drug Dosing 26.16 mL/min Estimated GFR (MDRD) 47 L (>=60) mL/min Glucose 106 H (75-99) mg/dL Calcium 8.5 (8.4-10.1) mg/dL Med Orders - Current: Current Medications Acetaminophen (Acetaminophen 500 Mg Tab) 500 mg PO DAILY PRN PRN Reason: Pain Hydrocodone Bitart/Acetaminophen (Acetaminophen/Hydrocodone 325-5 Mg Tab) 1 - 2 tab PO Q6H PRN PRN Reason: Pain Last Admin: 01/06/21 08:13 Dose: 1 tab Documented by: Calcium Carbonate (Calcium Carbonate/Vitamin D3 1250 Mg-200 Unit Tab) 1 tab PO DAILY [facility] Last Admin: 01/06/21 07:43 Dose: 1 tab Documented by: Ceftriaxone Sodium (Ceftriaxone 1 Gm Vial) 1 gm IVPUSH Q24H [facility] Last Admin: 01/05/21 11:10 Dose: 1 gm Documented by: Docusate Sodium (Docusate Sodium 100 Mg Cap) 100 mg PO DAILY [facility] Last Admin: 01/06/21 07:42 Dose: 100 mg Documented by: Enoxaparin Sodium (Enoxaparin 30 Mg/0.3 Ml Syringe) 30 mg SUBCUT Q24H [facility] Last Admin: 01/05/21 11:19 Dose: 30 mg Documented by: Furosemide (Furosemide 40 Mg Tab) 80 mg PO DAILY [facility] Last Admin: 01/06/21 07:43 Dose: 80 mg Documented by: Gabapentin (Gabapentin 300 Mg Cap) 300 mg PO BEDTIME [facility] Last Admin: 01/05/21 19:45 Dose: 300 mg Documented by: Potassium Chloride 40 meq/ (Premix) 100 mls @ 25 mls/hr IV ONETIME ONE Stop: 01/05/21 14:29 Last Admin: 01/05/21 11:22 Dose: 25 mls/hr Documented by: Sodium Chloride (Normal Saline) 250 mls @ 62.5 mls/hr IV ONETIME ONE Stop: 01/05/21 14:44 Last Admin: 01/05/21 11:10 Dose: 62.5 mls/hr Documented by: Ibuprofen (Ibuprofen 200 Mg Tab) 200 mg PO DAILY PRN PRN Reason: Pain Last Admin: 01/04/21 23:52 Dose: 200 mg Documented by: Morphine Sulfate (Morphine 2 Mg/Ml Syringe) 2 mg IVPUSH Q2H PRN PRN Reason: Pain (severe 7-10) Multivitamins/Minerals/Vitamin C (Multivitamin Tab) 1 tab PO DAILY [facility] Last Admin: 01/06/21 07:43 Dose: 1 tab Documented by: Amiloride/Hydrochlorothiazide 5/50mg Tab Ptom 0 each PO DAILY [facility] Last Admin: 01/06/21 08:19 Dose: 1 each Documented by: Ondansetron HCl (Ondansetron 4 Mg/2 Ml Sdv) 4 mg IV Q6H PRN PRN Reason: Nausea/Vomiting Potassium Chloride (Potassium Chloride 10 Meq Tab.Er) 40 meq PO TIDMEALS [facility] Last Admin: 01/06/21 07:43 Dose: 40 meq Documented by: Propranolol HCl (Propranolol 60 Mg Cap.Er) 60 mg PO BID [facility] Last Admin: 01/06/21 08:19 Dose: 60 mg Documented by: Discontinued Medications Acetaminophen (Acetaminophen 325 Mg Tab) 650 mg PO Q4H PRN PRN Reason: Pain (Mild 1-3)/fever Hydrocodone Bitart/Acetaminophen (Acetaminophen/Hydrocodone 325-5 Mg Tab) 1 tab PO Q4H PRN PRN Reason: Pain (moderate 4-6) Hydrocodone Bitart/Acetaminophen (Acetaminophen/Hydrocodone 325-5 Mg Tab Ptom) 1 tab PO QAM [facility] Last Admin: 01/04/21 12:07 Dose: Not Given Documented by: Hydrocodone Bitart/Acetaminophen (Acetaminophen/Hydrocodone 325-5 Mg Tab Ptom) 2 tab PO WITHDINNER [facility] Furosemide (Furosemide 40 Mg Tab Ptom) 80 mg PO DAILY [facility] Potassium Chloride 20 meq/ (Dextrose/Water) 1,010 mls @ 100 mls/hr IV ASDIRECTED [facility] Potassium Chloride/Sodium Chloride (Normal Saline With 20 Meq Kcl) 1,000 mls @ 100 mls/hr IV ONETIME ONE Stop: 01/04/21 21:44 Last Admin: 01/04/21 11:40 Dose: 100 mls/hr Documented by: Sodium Chloride (Normal Saline) 500 mls @ 125 mls/hr IV ONETIME ONE Stop: 01/05/21 14:29 Last Admin: 01/05/21 12:59 Dose: Not Given Documented by: Non-Formulary Medication (Docusate Sodium [Stool Softener]) 50 mg PO DAILY [facility] Non-Formulary Medication (Ibuprofen [Advil]) 100 mg PO DAILY PRN PRN Reason: Pain Potassium Chloride (20 Meq Tab Ptom) 0 each PO BIDMEALS [facility] Last Admin: 01/04/21 15:11 Dose: Not Given Documented by: Potassium Chloride (Potassium Chloride 10 Meq Tab.Er) 40 meq PO DAILY [facility] Last Admin: 01/04/21 11:40 Dose: Not Given Documented by: Potassium Chloride (Potassium Chloride 10 Meq Tab.Er) 20 meq PO BIDMEALS [facility] Last Admin: 01/05/21 07:54 Dose: 20 meq Documented by: Potassium Chloride (Potassium Chloride 10 Meq Tab.Er) 40 meq PO TID [facility] Last Admin: 01/05/21 09:39 Dose: Not Given Documented by: Propranolol HCl (Propranolol 60 Mg Cap.Er Ptom) 60 mg PO BID [facility] - Exam General: Reports: Alert, Oriented HEENT: Reports: Mucous Membr. Moist/[place] Neck: Reports: Supple Lungs: Reports: Clear to Auscultation, Normal Respiratory Effort Cardiovascular: Reports: Regular Rate, Regular Rhythm GI/Abdominal Exam: Normal Bowel Sounds, Soft, Non-Tender Extremities: Normal Inspection, Pedal Edema (1+) Skin: Reports: Warm, Dry Neurological: Reports: No New Focal Deficit
== END 2021-01-06 09:53 | disposition home health service (06) | DRG 690 ==
LOC: CC.ED 08:20 → OBSVTOIN 10:11 → CC.MS 10:11 → UNDOADMOB 10:15
PROVIDERS: ADMIT Nurse Practitioner; ATTEND Family Medicine
DX: N30.01 Acute cystitis with hematuria (principal); E87.6 Hypokalemia; G89.29 Other chronic pain; M54.9 Dorsalgia, unspecified; Z79.899 Other long term (current) drug therapy; Z88.2 Allergy status to sulfonamides; W19.XXXA Unspecified fall, initial encounter
CPT/HCPCS: 36415; 70450; 71045; 73060-LT; 80048; 80053; 81001; 82550; 83615; 83735; 84100; 84484; 85025; 85610; 93005; 93010; 97161-GP; 99284; 99285-25; A9270-GY; J0696; J1650; J3480; J7050